=== PATIENT | female | born 1980 ===

== ENCOUNTER 2024-11-14 09:00 | Outpatient (CLI) | payer BC, SELFPAY ==
--- NOTE | ~2024-11-14 | US_ITS ---
EXAMINATION: US thyroid DATE: 11/14/2024 09:15 INDICATION: Thyromegaly. TECHNIQUE: Multiple ultrasound images of the thyroid were obtained. COMPARISON: None. FINDINGS: The right thyroid lobe measures 5.4 x 1.8 x 1.5 cm. The left thyroid lobe measures 5.5 x 2.3 x 1.7 cm. In the right thyroid lobe, there is a 1.7 cm solid, hypoechoic, wider than tall nodule with ill-defined margin without echogenic foci (TI-RADS TR4). In the left thyroid lobe, there is a 2.4 cm almost entirely solid, isoechoic, wider than tall nodule with ill-defined margin without echogenic foci (TR3). In the left thyroid lobe, there is a 1.8 cm solid, hypoechoic, wider than tall nodule with smooth margin without echogenic foci (TR4). IMPRESSION: 1. Multinodular goiter. Ultrasound-guided fine-needle aspiration of 2 nodules is recommended. Reviewed, dictated and finalized at location E. IMPRESSION: 1. Multinodular goiter. Ultrasound-guided fine-needle aspiration of 2 nodules i s recommended.
== END 2024-11-14 09:01 | disposition home or self-care (01) ==
PROVIDERS: PCP Internal Medicine; Visit Provider Internal Medicine
DX: E04.2 Nontoxic multinodular goiter (principal)
CPT/HCPCS: 76536